=== PATIENT | male | born 1955 | race Caucasian/White ===

== ENCOUNTER 2021-08-26 22:35 | Observation (INO) | payer MEDICARE, OTHER, SELFPAY ==
[2021-08-26] MEDS ORDERED: Sodium Chloride 0.9% 1000 ML 1,000 ML IV SCH (22:45)
--- NOTE | 2021-08-26 22:46 | ERPHSYRPT ---
- History of Present Illness Time Seen by Provider: 08/26/21 22:38 Physician History: 66-year-old male with a history of stage IV lung cancer on chemotherapy, DVT presented in the ER with chief complaint of strokelike symptoms. Patient/ report patient got up and was having difficulty walking/off balance and numbness left face and right upper extremity which started almost half an hour prior to arrival. Patient does report difficulty swallowing. Denies any headache, visual disturbance, difficulty speech, facial droop, focal weakness etc. Denies any chest pain palpitations or shortness of breath but what he has at his baseline. Timing/Duration: hour(s) (0.5), constant, sudden Severity: moderate Character of Deficits: altered sensation, Left Facial, RUE Deficits: off balance Baseline/Normal Cognition: alert oriented x 3 Current Cognition: alert oriented x 3 Baseline Gait: walks w/o assistance Associated Symptoms: numbness/tingling in legs/feet, trouble walking, No confusion, No loss of consciousness, No seizures, No slurred speech, No vision changes, No chest pain, No headache Allergies/Adverse Reactions: No Known Drug Allergies Allergy (Verified 08/26/21 22:39) Home Medications: ALPRAZolam [Alprazolam] 1 tab PO BID PRN 08/26/21 [History] Apixaban [Eliquis 5 mg Tablet] 1 tab PO BID 08/26/21 [History] Omeprazole 1 cap PO DAILY 08/26/21 [History] Oxycodone HCl/Acetaminophen [Oxycodone-Acetaminophn 7.5-325] 1 tab PO QID 08/26/21 [History] Hx Tetanus, Diphtheria Vaccination/Date Given: Yes Hx Influenza Vaccination/Date Given: No Hx Pneumococcal Vaccination/Date Given: No - Review of Systems Constitutional: Fatigue Eyes: No Symptoms Ears, Nose, & Throat: No Symptoms Respiratory: Dyspnea Cardiac: No Symptoms Abdominal/Gastrointestinal: No Symptoms Genitourinary Symptoms: No Symptoms Musculoskeletal: No Symptoms Skin: No Symptoms Neurological: Gait Changes, Sensory Changes Psychological: No Symptoms Endocrine: No Symptoms Hematologic/Lymphatic: Blood Clots Immunological/Allergic: No Symptoms - Past Medical History Pertinent Past Medical History: Yes Neurological History: No Pertinent History ENT History: No Pertinent History Cardiac History: No Pertinent History Respiratory History: No Pertinent History Endocrine Medical History: No Pertinent History Musculoskeletal History: No Pertinent History GI Medical History: GERD Psycho-Social History: Anxiety, Depression Male Reproductive Disorders: No Pertinent History - Past Surgical History Past Surgical History: Yes Gastrointestinal: Hernia Repair Other Surgical History: tailbone cyst. fatty tissue removed from back - Social History Smoking Status: Current every day smoker How long have you smoked: 1 Exposure to second hand smoke: Yes Drug Use: none Patient Lives Alone: No - Nursing Vital Signs Nursing Vital Signs: Initial Vital Signs Temperature 98 F 08/26/21 22:35 Pulse Rate 97 H 08/26/21 22:35 Respiratory Rate 12 08/26/21 22:35 Blood Pressure 159/68 08/26/21 22:35 O2 Sat by Pulse Oximetry 97 08/26/21 22:35 Pain Scale Pain Intensity 0 - Anya Coma Scale Best Eye Response (Anya): (4) open spontaneously Best Verbal Response ([place]): (5) oriented Best Motor Response (Anya): (6) obeys commands Anya Total: 15 - Physical Exam General Appearance: no apparent distress, alert Eye Exam: bilateral eye: normal inspection, PERRL, EOMI Ears, Nose, Throat Exam: normal ENT inspection, TMs normal, pharynx normal, moist mucous membranes Neck Exam: normal inspection, non-tender, supple, full range of motion Respiratory: normal breath sounds, lungs clear Cardiovascular: regular rate/rhythm, normal heart sounds Gastrointestinal: soft, normal bowel sounds, No tenderness Back Exam: normal inspection, normal range of motion Extremity Exam: normal inspection, normal range of motion, pelvis stable Mental Status: alert, oriented x 3, cooperative chemical laboratory tester Exam: normal hearing, normal speech, PERRL, No facial asymmetry, No facial droop Coordination/Gait: normal finger to nose, normal cerebellar function, No normal gait Motor/Sensory: no motor deficit, no pronator drift, negative Babinski's sign, sensory deficit (3 sensations of touch fine touch left face/right forearm/hand.) DTR: bicep (R): 2+, bicep (L): 2+, knee (R): 2+, knee (L): 2+ Skin Exam: normal color SpO2 Interpretation: normal SpO2: 95 O2 Delivery: Room Air - Course EKG Interpreted by Me: RATE (79), Sinus Rhythm, NORMAL AXIS, NORMAL QRS Ordered Tests: Medication Summary Discontinued Medications Generic Name Dose Route Start Last Admin Trade Name Freq PRN Reason Stop Dose Admin Acetaminophen 650 mg 08/27/21 04:55 Acetaminophen 325 Mg Tablet PO 09/26/21 04:54 Q4H PRN PRN PAIN AND/OR FEVER Albuterol/Ipratropium 3 ml 08/27/21 07:00 Ipratropium/Albuterol Sulfate 3 Ml Ampul.Neb IH 09/26/21 06:59 QIDRT JANE Alprazolam 1 mg 08/27/21 13:45 08/27/21 21:43 Alprazolam 1 Mg Tablet PO 09/26/21 13:44 1 mg BID PRN PRN Administration ANXIETY Apixaban 5 mg 08/27/21 14:00 08/28/21 08:17 Apixaban 2.5 Mg Tablet PO 09/26/21 13:59 5 mg BID JANE Administration Calcium Carbonate/Glycine 750 mg 08/28/21 08:25 08/28/21 08:56 Calcium Carbonate 750 Mg 750 Mg Tab.Chew PO 09/27/21 08:24 750 mg Q4HPRN PRN Administration INDIGESTION Heparin Sodium (Beef Lung) 500 units 08/27/21 18:38 Heparin Lock Flush Pf 500 Units/5 Ml Syringe PORT FLUSH 09/26/21 18:37 PRN PRN IV PORT FLUSH Sodium Chloride 1,000 mls @ 100 mls/hr 08/26/21 22:45 08/27/21 00:22 Sodium Chloride 0.9% 1000 Ml IV 09/25/21 22:44 100 mls/hr .Q10H JANE Administration Sodium Chloride Confirm 08/27/21 00:22 Sodium Chloride 0.9% 1000 Ml Administered 08/27/21 00:23 Dose 1,000 mls @ ud .ROUTE .STK-MED ONE Sodium Chloride 1,000 mls @ 100 mls/hr 08/27/21 04:55 08/28/21 01:31 Sodium Chloride 0.9% 1000 Ml IV 09/26/21 04:54 100 mls/hr .Q10H JANE Administration Nicotine 21 mg 08/27/21 15:45 08/28/21 08:18 Nicotine 21 Mg/Patch Patch TOP 09/26/21 15:44 21 mg Q24H10 JANE Administration Ondansetron HCl Confirm 08/26/21 22:56 Ondansetron Hcl 4 Mg/2 Ml Vial Administered 08/26/21 22:57 Dose 4 mg .ROUTE .STK-MED ONE Ondansetron HCl 4 mg 08/26/21 22:58 08/26/21 22:58 Ondansetron Hcl 4 Mg/2 Ml Vial IV 08/26/21 22:59 4 mg STAT ONE Administration Ondansetron HCl 4 mg 08/27/21 05:43 08/27/21 10:07 Ondansetron Hcl 4 Mg/2 Ml Vial IV 09/26/21 05:42 4 mg Q4H PRN PRN Administration NAUSEA/VOMITING Oxycodone/Acetaminophen 1.5 tab 08/27/21 17:00 08/28/21 08:18 Oxycodone Hcl/Apap 5 Mg/325 Mg Tablet PO 09/01/21 16:59 1.5 tab QID JANE Administration Pantoprazole Sodium 40 mg 08/27/21 10:00 08/27/21 10:07 Pantoprazole 40 Mg Vial IV 09/26/21 09:59 40 mg Q24H10 JANE Administration Pantoprazole Sodium 40 mg 08/28/21 10:00 08/28/21 08:18 Protonix (Pantoprazole) 40 Mg Tablet PO 09/27/21 09:59 40 mg DAILY JANE Administration Senna/Docusate Sodium 1 udtab 08/27/21 22:00 08/28/21 08:17 Senna/Docusate Sodium 1 Udtab Tablet PO 09/26/21 21:59 1 udtab BID JANE Administration Lab/Rad Data: Laboratory Result Diagrams 08/26/21 23:05 08/26/21 23:05 Laboratory Results 08/27/21 08/27/21 08/26/21 Range/Units 01:21 01:07 23:05 WBC (4.0-10.5) K/mm3 RBC (4.1-5.6) M/mm3 Hgb (12.5-18.0) gm/dl Hct (42-50) % MCV (78-100) fl MCH (26-32) pg MCHC (32-36) g/dl RDW (11.5-14.0) % Plt Count (150-450) K/mm3 MPV (7.5-11.0) fl Gran % (36.0-66.0) % Eos # (Auto) (0-0.5) Absolute Lymphs (auto) (1.0-4.6) Absolute Monos (auto) (0.0-1.3) Lymphocytes % (24.0-44.0) % Monocytes % (0.0-12.0) % Eosinophils % (0.00-5.0) % Basophils % (0.0-0.4) % Absolute Granulocytes (1.4-6.9) Basophils # (0-0.4) PT (9.4-12.5) SECONDS INR (0.8-3.0) APTT (25.1-36.5) SECONDS Sodium (137-145) mmol/L Potassium (3.5-5.1) mmol/L Chloride (98-107) mmol/L Carbon Dioxide (22-30) mmol/L Anion Gap (5-15) MEQ/L BUN (9-20) mg/dL Creatinine (0.66-1.25) mg/dL Estimated GFR ML/MIN Glucose (74-106) mg/dL Calcium (8.4-10.2) mg/dL Total Bilirubin (0.2-1.3) mg/dL AST (17-59) U/L ALT (0-50) U/L Alkaline Phosphatase (38-126) U/L Troponin I < 0.012 < 0.012 (0.000-0.034) ng/mL NT-Pro-B Natriuret Pep (0-900) pg/mL Serum Total Protein (6.3-8.2) g/dL Albumin (3.5-5.0) g/dL Influenza Type A Ag NEGATIVE (NEGATIVE) Influenza Type B Ag NEGATIVE (NEGATIVE) RSV (PCR) NEGATIVE (Negative) SARS-CoV-2 (PCR) NEGATIVE (NEGATIVE) 08/26/21 08/26/21 08/26/21 Range/Units 23:05 23:05 23:05 WBC 7.4 (4.0-10.5) K/mm3 RBC 4.48 (4.1-5.6) M/mm3 Hgb 13.7 (12.5-18.0) gm/dl Hct 40.8 L (42-50) % MCV 91.1 (78-100) fl MCH 30.6 (26-32) pg MCHC 33.6 (32-36) g/dl RDW 17.2 H (11.5-14.0) % Plt Count 278 (150-450) K/mm3 MPV 9.1 (7.5-11.0) fl Gran % 84.4 H (36.0-66.0) % Eos # (Auto) 0.03 (0-0.5) Absolute Lymphs (auto) 0.93 L (1.0-4.6) Absolute Monos (auto) 0.19 (0.0-1.3) Lymphocytes % 12.5 L (24.0-44.0) % Monocytes % 2.6 (0.0-12.0) % Eosinophils % 0.4 (0.00-5.0) % Basophils % 0.1 (0.0-0.4) % Absolute Granulocytes 6.28 (1.4-6.9) Basophils # 0.01 (0-0.4) PT 12.2 (9.4-12.5) SECONDS INR 1.03 (0.8-3.0) APTT 31.1 (25.1-36.5) SECONDS Sodium 138 (137-145) mmol/L Potassium 3.7 (3.5-5.1) mmol/L Chloride 103 (98-107) mmol/L Carbon Dioxide 25 (22-30) mmol/L Anion Gap 14.1 (5-15) MEQ/L BUN 23 H (9-20) mg/dL Creatinine 0.85 (0.66-1.25) mg/dL Estimated GFR > 60.0 ML/MIN Glucose 134 H (74-106) mg/dL Calcium 8.2 L (8.4-10.2) mg/dL Total Bilirubin 0.70 (0.2-1.3) mg/dL AST 35 (17-59) U/L ALT 29 (0-50) U/L Alkaline Phosphatase 107 (38-126) U/L Troponin I (0.000-0.034) ng/mL NT-Pro-B Natriuret Pep 49.8 (0-900) pg/mL Serum Total Protein 8.2 (6.3-8.2) g/dL Albumin 4.1 (3.5-5.0) g/dL Influenza Type A Ag (NEGATIVE) Influenza Type B Ag (NEGATIVE) RSV (PCR) (Negative) SARS-CoV-2 (PCR) (NEGATIVE) - Progress Progress: unchanged Progress Note: 08/27/21 00:27 66-year-old is evaluated for sudden onset left facial and right upper extremity numbness with difficulty swallowing. Seems like brainstem stroke. CT head is negative for any acute findings. Grossly unremarkable lab work and neuro consult is obtained who recommended CTA to rule out posterior circulation stroke and obtaining MRI in the morning. Patient is on Eliquis and recommended holding off on aspirin for now and keep patient n.p.o. until speech and swallow evaluation is done. Plan discussed with patient and family understand and agree with it. CT is pending currently. Discussed with and patient is ex cepted for admission. Discussed with : Bryanna, Other Will see patient in: hospital (observation) Counseled pt/family regarding: lab results, diagnosis, rad results - Departure Departure Disposition: Observation Clinical Impression: Stroke Condition: Stable Critical Care Time: Yes Critical Care Time(excluding separately billable procedures): Critical 30-74 mins
[2021-08-26] MEDS ORDERED: Zofran 4 MG/2 ML VIAL ONE (22:56)
[2021-08-26] MEDS ORDERED: Zofran 4 MG/2 ML VIAL IV ONE (22:58)
[2021-08-26 23:15] LABS: Absolute Neutrophil Ct (ANC) 6.28 (1.4-6.9); Basophil (Absolute #) 0.01 (0-0.4); Eosinophil % 0.4 % (0.00-5.0); Eosinophil (Absolute #) 0.03 (0-0.5); Hematocrit 40.8 % (42-50); Hemoglobin 13.7 gm/dl (12.5-18.0); Lymphocyte (Absolute #) 0.93 (1.0-4.6); Lymphocytes % 12.5 % (24.0-44.0); Mean Cell Volume 91.1 fl (78-100); Mean Corpuscular Hemoglobin 30.6 pg (26-32); Mean Corpuscular Hgb Concent. 33.6 g/dl (32-36); Mean Platelet Volume 9.1 fl (7.5-11.0); Monocyte (Absolute #) 0.19 (0.0-1.3); Monocytes % 2.6 % (0.0-12.0); Neutrophil % 84.4 % (36.0-66.0); Platelet Count 278 K/mm3 (150-450); Red Blood Count 4.48 M/mm3 (4.1-5.6); Red Cell Distribution Width 17.2 % (11.5-14.0); White Blood Count 7.4 K/mm3 (4.0-10.5)
[2021-08-26 23:25] LABS: INR 1.03 (0.8-3.0); PROTIME 12.2 SECONDS (9.4-12.5)
[2021-08-26 23:28] LABS: PTT 31.1 SECONDS (25.1-36.5)
[2021-08-26 23:39] LABS: ALBUMIN 4.1 g/dL (3.5-5.0); ALKALINE PHOSPHATASE 107 U/L (38-126); ANION GAP 14.1 MEQ/L (5-15); BLOOD UREA NITROGEN 23 mg/dL (9-20); CHLORIDE 103 mmol/L (98-107); Calcium 8.2 mg/dL (8.4-10.2); Carbon Dioxide 25 mmol/L (22-30); Creatinine 1 0.85 mg/dL (0.66-1.25); EST GLOMERULAR FILTRATION RATE > 60.0 ML/MIN; Glucose 134 mg/dL (74-106); NT PRO BNP 49.8 pg/mL (0-900); Potassium 3.7 mmol/L (3.5-5.1); SGOT/AST 35 U/L (17-59); SGPT/ALT 29 U/L (0-50); SODIUM 138 mmol/L (137-145); Total Protein 8.2 g/dL (6.3-8.2)
[2021-08-27] MEDS ORDERED: Sodium Chloride 0.9% 1000 ML 1,000 ML ONE (00:22)
[2021-08-27 01:45] LABS: INFLUENZA A NEGATIVE (NEGATIVE); INFLUENZA B NEGATIVE (NEGATIVE); RESPIRATORY SYNCTIAL VIRUS NEGATIVE (Negative); SARS-CoV-2 Xpert Express NEGATIVE (NEGATIVE)
[2021-08-27] MEDS ORDERED: TYLENOL 325 MG PO PRN (04:55)
[2021-08-27] MEDS: Zofran 4 MG/2 ML VIAL IV PRN ×2 (05:45→10:07)
[2021-08-27] MEDS: Sodium Chloride 0.9% 1000 ML 1,000 ML IV SCH ×2 (06:03→15:58)
[2021-08-27] MEDS ORDERED: DUONEB 0.5-3 MG/3 ml Neb IH SCH (07:00)
--- NOTE | 2021-08-27 09:05 | XRAY ---
Indication: Left facial numbness and right arm tingling. Stroke. Multiple contiguous axial images obtained through the head without contrast. Comparison: December 15, 2014. Ventriculosulcal pattern appears symmetric. New finding for remote lacunar infarct left basal ganglia. No acute intracranial hemorrhage, abnormal extra-axial fluid collection, or mass effect. Fourth ventricle is midline without hydrocephalus. [place]-white matter differentiation preserved. Bony calvarium intact. Mild mucosal thickening right maxillary sinus. Remaining paranasal sinuses and mastoid air cells are clear. Impression: Remote lacunar infarct left basal ganglia. Right maxillary sinus disease. Remaining CT head without contrast exam is negative. Comment: Preliminary interpretation made by [facility]. No critical discrepancy.
--- NOTE | 2021-08-27 09:13 | XRAY ---
Indication: Left sided numbness. Right-sided tingling. Stroke. Conventional contrast enhanced CTA neck performed using 100 cc Isovue 370 contrast. Two-dimensional sagittal and coronal reformatted images obtained. Additional 3-dimensional reformatted images obtained using a separate workstation. Comparison: None Visualized aortic arch demonstrates minimal arteriosclerotic calcifications without aneurysm/dissection. Normal branching right brachiocephalic, left common carotid, and left subclavian arteries. Very minimal arteriosclerotic disease origin left subclavian artery. Incidental partially visualized right Port-A-Cath. Right carotid circulation demonstrates widely patent common carotid, bulb, and external carotid arteries. Minimal scattered arteriosclerotic calcifications origin/proximal internal carotid artery producing 20-30% stenosis. Left carotid circulation demonstrates widely patent common carotid, bulb, and external carotid arteries. Mild calcifications origin/proximal internal carotid artery producing 40-50% stenosis. Vertebral arteries demonstrates the right vertebral artery to be larger in caliber. Distal left vertebral artery occlusion with reconstitution just proximal to the basilar artery presumed from retrograde flow. Visualized noncontrasted soft tissues demonstrates scattered centimeter and subcentimeter cervical/submandibular lymph nodes. Supra-and infraglottic airway widely patent. Thyroid gland enhances homogeneously. Lung apices demonstrates moderate pulmonary emphysema. Osseous structures intact with minimal degenerative changes throughout the cervical thoracic spine. Patient is nearly edentulous. Impression: 1. 20-30% stenosis right internal carotid and 40-50% stenosis left internal carotid arteries as detailed. 2. Occlusion distal left vertebral artery. 3. Incidental pulmonary emphysema and chronic bony findings. Comment: Preliminary interpretation made by [facility]. No critical discrepancy.
--- NOTE | 2021-08-27 09:17 | XRAY ---
Indication: Left sided numbness. Right-sided tingling. Stroke. Conventional contrast enhanced CTA head performed using 100 cc Isovue 370 contrast. Two-dimensional sagittal and coronal reformatted images obtained. Additional 3-dimensional reformatted images obtained using a separate workstation. Comparison: None Distal internal carotid arteries are bilaterally symmetric with mild arteriosclerotic calcifications involving both parasellar segments. No critical stenosis/obstruction or AV malformation. Normal carotid terminus with normal branching A1 and M1 segments bilaterally. More distal anterior cerebral, middle cerebral, anterior communicating, and posterior communicating arteries are normal in CTA appearance. Posterior circulation demonstrates normal CTA appearance to the basilar, left/right posterior cerebral, and left/right superior cerebellar arteries. Venous drainage/sinuses are unremarkable. No abnormal enhancing intra-axial or extra-axial mass. Impression: Mild arteriosclerotic calcifications both parasellar segments internal carotid arteries. Remaining CTA brain with contrast exam is negative. Comment: Preliminary interpretation made by [facility]. No critical discrepancy.
[2021-08-27] MEDS ORDERED: PROTONIX 40 MG IV IV SCH (10:00)
--- NOTE | 2021-08-27 11:01 | XRAY ---
Indication: Cerebrovascular accident. Sagittal, coronal, and axial MRI brain performed without contrast using T1, T2, FLAIR, diffusion, and ADC sequences. Comparison: None Several images/sequences are slightly degraded by motion. Age-appropriate global atrophy. No acute intracranial hemorrhage, abnormal extra-axial fluid collection, or mass effect. Diffusion images demonstrates small multifocal bilateral cerebellar restricted signal favoring acute ischemia. Largest in the right cerebellum measuring 1.1 cm. Similar small multifocal micro-ischemia seen of the posterior right temporal and lesser degree right occipital lobes. Fourth ventricle is midline without hydrocephalus. 7/8 cranial nerve complex bilaterally symmetric. Normal flow void signal within the major intracerebral circulation. Normal appearing craniocervical junction and sella turcica. Mild mucosal thickening right maxillary sinus. Remaining paranasal sinuses are clear. Impression: 1. Mild motion artifact. 2. Multifocal small acute micro-ischemia in both cerebellum, posterior right temporal, and right occipital lobes. Given multiplicity and bilaterality, rule out embolic etiology. 3. No acute hemorrhage/mass effect. 4. Right maxillary sinus disease.
[2021-08-27] MEDS ORDERED: XANAX 1 MG PO PRN (13:45)
[2021-08-27] MEDS: PERCOCET TABLET 5/325MG PO SCH ×2 (14:02→21:34)
[2021-08-27] MEDS: ELIQUIS 2.5 MG TABLET PO SCH ×2 (14:03→21:36)
--- NOTE | 2021-08-27 14:26 | PCM.HP ---
History of Present Illness - Chief Complaint Chief Complaint: difficulty in walking for 1 day History of Present Illness: is a 66 year old male.with a history of stage IV lung cancer on chemotherapy, DVT presented in the ER with chief complaint of symptoms. Patient/ report patient got up and was having difficulty walking/off balance and numbness left face and right upper extremity which started almost half an hour prior to arrival. Patient does report difficulty swallowing. Denies any headache, visual disturbance, difficulty speech, facial droop, focal weakness etc. Denies any chest pain palpitations or shortness of breath but what he has at his baseline. Timing/Duration: hour(s) (0.5), constant, sudden Severity: moderate Character of Deficits: altered sensation, Left Facial, RUE Deficits: off balance Baseline/Normal Cognition: alert oriented x 3 Current Cognition: alert oriented x 3 Baseline Gait: walks w/o assistance Associated Symptoms: numbness/tingling in legs/feet, trouble walking, No confusion, No loss of consciousness, No seizures, No slurred speech, No vision changes, No chest pain, No headache - Review of Systems Constitutional: Lethargy, Weakness, No Fever, No Chills Eyes: No Symptoms Ears, Nose, & Throat: No Symptoms Respiratory: No Cough, No Short Of Breath Cardiac: No Chest Pain, No Edema, No Syncope Abdominal/Gastrointestinal: No Abdominal Pain, No Nausea, No Vomiting, No Diarrhea Genitourinary Symptoms: No Dysuria Musculoskeletal: No Back Pain, No Neck Pain Skin: No Rash Neurological: Focal Weakness, Gait Changes, Speech Changes, No Dizziness, No Sensory Changes Psychological: No Symptoms Endocrine: No Symptoms Hematologic/Lymphatic: No Symptoms Immunological/Allergic: No Symptoms Medications & Allergies Home Medications: Home Medication List ALPRAZolam [Alprazolam] 1 tab PO BID PRN 08/26/21 [History Confirmed 08/26/21] Apixaban [Eliquis 5 mg Tablet] 1 tab PO BID 08/26/21 [History Confirmed 08/26/21] Omeprazole 1 cap PO DAILY 08/26/21 [History Confirmed 08/26/21] Oxycodone HCl/Acetaminophen [Oxycodone-Acetaminophn 7.5-325] 1 tab PO QID 08/26/21 [History Confirmed 08/26/21] Allergies/Adverse Reactions: Allergies Allergy/AdvReac Type Severity Reaction Status Date / Time No Known Drug Allergies Allergy Verified 08/26/21 22:39 - Past Medical History Past Medical History: Yes Neurological History: No Pertinent History ENT History: No Pertinent History Cardiac History: No Pertinent History Respiratory History: No Pertinent History Endocrine Medical History: No Pertinent History Musculoskelatal History: No Pertinent History GI Medical History: GERD Pyscho-Social History: Anxiety, Depression Male Reproductive Disorders: No Pertinent History Comment: History of blood clot in right arm, Chemo for lung CA - Past Surgical History Past Surgical History: Yes GI Surgical History: Hernia Repair Other Surgical History: tailbone cyst. fatty tissue removed from back - Social History Smoking Status: Current every day smoker How long have you smoked: 1 Exposure to second hand smoke: Yes Alcohol: Occasionally Drug Use: none - Physical Exam Vital Signs: Vital Signs - 24 hr Temp Pulse Resp BP Pulse Ox 08/27/21 12:00 98.0 F 75 16 133/69 96 08/27/21 07:38 97.7 F 80 16 129/60 95 08/27/21 05:51 79 16 94 L 08/27/21 05:12 97.8 F 79 16 138/73 96 08/27/21 04:06 77 14 140/76 98 08/27/21 02:56 84 19 142/76 98 08/27/21 00:55 81 19 136/78 96 08/27/21 00:30 95 08/26/21 23:35 68 12 145/85 97 08/26/21 22:35 98 F 97 H 12 159/68 97 General Appearance: no apparent distress, alert Neurologic Exam: alert, oriented x 3, cooperative, normal mood/affect, nml cerebellar function, nml station & gait, sensation nml, No motor deficits Eye Exam: PERRL/EOMI, eyes nml inspection Ears, Nose, Throat Exam: normal ENT inspection, TMs normal, pharynx normal, moist mucous membranes Neck Exam: normal inspection, non-tender, supple, full range of motion Respiratory Exam: normal breath sounds, lungs clear, No respiratory distress Cardiovascular Exam: regular rate/rhythm, normal heart sounds, normal peripheral pulses Gastrointestinal/Abdomen Exam: soft, normal bowel sounds, No tenderness, No mass Back Exam: normal inspection, normal range of motion, No CVA tenderness, No vertebral tenderness Extremity Exam: normal inspection, normal range of motion, pelvis stable Skin Exam: normal color, warm, dry, No rash Lymphatic Exam: No adenopathy Results - Labs Lab/Micro Results: Lab Results-Last 24 Hours 08/26/21 08/26/21 08/26/21 Range/Units 23:05 23:05 23:05 WBC 7.4 (4.0-10.5) K/mm3 RBC 4.48 (4.1-5.6) M/mm3 Hgb 13.7 (12.5-18.0) gm/dl Hct 40.8 L (42-50) % MCV 91.1 (78-100) fl MCH 30.6 (26-32) pg MCHC 33.6 (32-36) g/dl RDW 17.2 H (11.5-14.0) % Plt Count 278 (150-450) K/mm3 MPV 9.1 (7.5-11.0) fl Gran % 84.4 H (36.0-66.0) % Eos # (Auto) 0.03 (0-0.5) Absolute Lymphs (auto) 0.93 L (1.0-4.6) Absolute Monos (auto) 0.19 (0.0-1.3) Lymphocytes % 12.5 L (24.0-44.0) % Monocytes % 2.6 (0.0-12.0) % Eosinophils % 0.4 (0.00-5.0) % Basophils % 0.1 (0.0-0.4) % Absolute Granulocytes 6.28 (1.4-6.9) Basophils # 0.01 (0-0.4) PT 12.2 (9.4-12.5) SECONDS INR 1.03 (0.8-3.0) APTT 31.1 (25.1-36.5) SECONDS Sodium 138 (137-145) mmol/L Potassium 3.7 (3.5-5.1) mmol/L Chloride 103 (98-107) mmol/L Carbon Dioxide 25 (22-30) mmol/L Anion Gap 14.1 (5-15) MEQ/L BUN 23 H (9-20) mg/dL Creatinine 0.85 (0.66-1.25) mg/dL Estimated GFR > 60.0 ML/MIN Glucose 134 H (74-106) mg/dL Calcium 8.2 L (8.4-10.2) mg/dL Total Bilirubin 0.70 (0.2-1.3) mg/dL AST 35 (17-59) U/L ALT 29 (0-50) U/L Alkaline Phosphatase 107 (38-126) U/L Troponin I (0.000-0.034) ng/mL NT-Pro-B Natriuret Pep 49.8 (0-900) pg/mL Serum Total Protein 8.2 (6.3-8.2) g/dL Albumin 4.1 (3.5-5.0) g/dL Influenza Type A Ag (NEGATIVE) Influenza Type B Ag (NEGATIVE) RSV (PCR) (Negative) SARS-CoV-2 (PCR) (NEGATIVE) 08/26/21 08/27/21 08/27/21 Range/Units 23:05 01:07 01:21 WBC (4.0-10.5) K/mm3 RBC (4.1-5.6) M/mm3 Hgb (12.5-18.0) gm/dl Hct (42-50) % MCV (78-100) fl MCH (26-32) pg MCHC (32-36) g/dl RDW (11.5-14.0) % Plt Count (150-450) K/mm3 MPV (7.5-11.0) fl Gran % (36.0-66.0) % Eos # (Auto) (0-0.5) Absolute Lymphs (auto) (1.0-4.6) Absolute Monos (auto) (0.0-1.3) Lymphocytes % (24.0-44.0) % Monocytes % (0.0-12.0) % Eosinophils % (0.00-5.0) % Basophils % (0.0-0.4) % Absolute Granulocytes (1.4-6.9) Basophils # (0-0.4) PT (9.4-12.5) SECONDS INR (0.8-3.0) APTT (25.1-36.5) SECONDS Sodium (137-145) mmol/L Potassium (3.5-5.1) mmol/L Chloride (98-107) mmol/L Carbon Dioxide (22-30) mmol/L Anion Gap (5-15) MEQ/L BUN (9-20) mg/dL Creatinine (0.66-1.25) mg/dL Estimated GFR ML/MIN Glucose (74-106) mg/dL Calcium (8.4-10.2) mg/dL Total Bilirubin (0.2-1.3) mg/dL AST (17-59) U/L ALT (0-50) U/L Alkaline Phosphatase (38-126) U/L Troponin I < 0.012 < 0.012 (0.000-0.034) ng/mL NT-Pro-B Natriuret Pep (0-900) pg/mL Serum Total Protein (6.3-8.2) g/dL Albumin (3.5-5.0) g/dL Influenza Type A Ag NEGATIVE (NEGATIVE) Influenza Type B Ag NEGATIVE (NEGATIVE) RSV (PCR) NEGATIVE (Negative) SARS-CoV-2 (PCR) NEGATIVE (NEGATIVE) 08/27/21 Range/Units 05:33 WBC (4.0-10.5) K/mm3 RBC (4.1-5.6) M/mm3 Hgb (12.5-18.0) gm/dl Hct (42-50) % MCV (78-100) fl MCH (26-32) pg MCHC (32-36) g/dl RDW (11.5-14.0) % Plt Count (150-450) K/mm3 MPV (7.5-11.0) fl Gran % (36.0-66.0) % Eos # (Auto) (0-0.5) Absolute Lymphs (auto) (1.0-4.6) Absolute Monos (auto) (0.0-1.3) Lymphocytes % (24.0-44.0) % Monocytes % (0.0-12.0) % Eosinophils % (0.00-5.0) % Basophils % (0.0-0.4) % Absolute Granulocytes (1.4-6.9) Basophils # (0-0.4) PT (9.4-12.5) SECONDS INR (0.8-3.0) APTT (25.1-36.5) SECONDS Sodium (137-145) mmol/L Potassium (3.5-5.1) mmol/L Chloride (98-107) mmol/L Carbon Dioxide (22-30) mmol/L Anion Gap (5-15) MEQ/L BUN (9-20) mg/dL Creatinine (0.66-1.25) mg/dL Estimated GFR ML/MIN Glucose (74-106) mg/dL Calcium (8.4-10.2) mg/dL Total Bilirubin (0.2-1.3) mg/dL AST (17-59) U/L ALT (0-50) U/L Alkaline Phosphatase (38-126) U/L Troponin I < 0.012 (0.000-0.034) ng/mL NT-Pro-B Natriuret Pep (0-900) pg/mL Serum Total Protein (6.3-8.2) g/dL Albumin (3.5-5.0) g/dL Influenza Type A Ag (NEGATIVE) Influenza Type B Ag (NEGATIVE) RSV (PCR) (Negative) SARS-CoV-2 (PCR) (NEGATIVE) - Radiology Impressions Radiology Exams & Impressions: Radiology Procedures Category Date Time Status CT ANGIOGRAPHY NECK [CT] Stat Exams 08/27/21 00:26 Completed CTA HEAD W AND/OR WO CONTRAST [CT] Stat Exams 08/27/21 00:25 Completed HEAD WITHOUT CONTRAST [CT] Stat Exams 08/26/21 22:36 Completed MRI BRAIN W/O CONTRAST [MRI] Routine Exams 08/27/21 06:12 Completed MRI/MRI BRAIN W/O CONTRAST Indication: Cerebrovascular accident. Sagittal, coronal, and axial MRI brain performed without contrast using T1, T2, FLAIR, diffusion, and ADC sequences. Comparison: None Several images/sequences are slightly degraded by motion. Age-appropriate global atrophy. No acute intracranial hemorrhage, abnormal extra-axial fluid collection, or mass effect. Diffusion images demonstrates small multifocal bilateral cerebellar restricted signal favoring acute ischemia. Largest in the right cerebellum measuring 1.1 cm. Similar small multifocal micro-ischemia seen of the posterior right temporal and lesser degree right occipital lobes. Fourth ventricle is midline without hydrocephalus. 7/8 cranial nerve complex bilaterally symmetric. Normal flow void signal within the major intracerebral circulation. Normal appearing craniocervical junction and sella turcica. Mild mucosal thickening right maxillary sinus. Remaining paranasal sinuses are clear. Impression: 1. Mild motion artifact. 2. Multifocal small acute micro-ischemia in both cerebellum, posterior right temporal, and right occipital lobes. Given multiplicity and bilaterality, rule out embolic etiology. 3. No acute hemorrhage/mass effect. CT/CT ANGIOGRAPHY NECK Indication: Left sided numbness. Right-sided tingling. Stroke. Conventional contrast enhanced CTA neck performed using 100 cc Isovue 370 contrast. Two-dimensional sagittal and coronal reformatted images obtained. Additional 3-dimensional reformatted images obtained using a separate workstation. Comparison: None Visualized aortic arch demonstrates minimal arteriosclerotic calcifications without aneurysm/dissection. Normal branching right brachiocephalic, left common carotid, and left subclavian arteries. Very minimal arteriosclerotic disease origin left subclavian artery. Incidental partially visualized right Port-A-Cath. Right carotid circulation demonstrates widely patent common carotid, bulb, and external carotid arteries. Minimal scattered arteriosclerotic calcifications origin/proximal internal carotid artery producing 20-30% stenosis. Left carotid circulation demonstrates widely patent common carotid, bulb, and external carotid arteries. Mild calcifications origin/proximal internal carotid artery producing 40-50% stenosis. Vertebral arteries demonstrates the right vertebral artery to be larger in caliber. Distal left vertebral artery occlusion with reconstitution just proximal to the basilar artery presumed from retrograde flow. Visualized noncontrasted soft tissues demonstrates scattered centimeter and subcentimeter cervical/submandibular lymph nodes. Supra-and infraglottic airway widely patent. Thyroid gland enhances homogeneously. Lung apices demonstrates moderate pulmonary emphysema. Osseous structures intact with minimal degenerative changes throughout the cervical thoracic spine. Patient is nearly edentulous. Impression: 1. 20-30% stenosis right internal carotid and 40-50% stenosis left internal carotid arteries as detailed. 2. Occlusion distal left vertebral artery. 3. Incidental pulmonary emphysema and chronic bony findings. Comment: Prelimin Assessment/Plan (1) Embolic cerebral infarction Current Visit: Yes Status: Acute Qualifiers: Precerebral and cerebral artery: vertebral artery Laterality of affected vessel: left Qualified Code(s): I63.112 - Cerebral infarction due to embolism of left vertebral artery Assessment & Plan: CT/CT ANGIOGRAPHY NECK Indication: Left sided numbness. Right-sided tingling. Stroke. Conventional contrast enhanced CTA neck performed using 100 cc Isovue 370 contrast. Two-dimensional sagittal and coronal reformatted images obtained. Additional 3-dimensional reformatted images obtained using a separate workstation. Comparison: None Visualized aortic arch demonstrates minimal arteriosclerotic calcifications without aneurysm/dissection. Normal branching right brachiocephalic, left common carotid, and left subclavian arteries. Very minimal arteriosclerotic disease origin left subclavian artery. Incidental partially visualized right Port-A-Cath. Right carotid circulation demonstrates widely patent common carotid, bulb, and external carotid arteries. Minimal scattered arteriosclerotic calcifications origin/proximal internal carotid artery producing 20-30% stenosis. Left carotid circulation demonstrates widely patent common carotid, bulb, and external carotid arteries. Mild calcifications origin/proximal internal carotid artery producing 40-50% stenosis. Vertebral arteries demonstrates the right vertebral artery to be larger in caliber. Distal left vertebral artery occlusion with reconstitution just proximal to the basilar artery presumed from retrograde flow. Visualized noncontrasted soft tissues demonstrates scattered centimeter and subcentimeter cervical/submandibular lymph nodes. Supra-and infraglottic airway widely patent. Thyroid gland enhances homogeneously. Lung apices demonstrates moderate pulmonary emphysema. Osseous structures intact with minimal degenerative changes throughout the cervical thoracic spine. Patient is nearly edentulous. Impression: 1. 20-30% stenosis right internal carotid and 40-50% stenosis left internal carotid arteries as detailed. 2. Occlusion distal left vertebral artery. 3. Incidental pulmonary emphysema and chronic bony findings. CT/CT ANGIOGRAPHY NECK Indication: Left sided numbness. Right-sided tingling. Stroke. Conventional contrast enhanced CTA neck performed using 100 cc Isovue 370 contrast. Two-dimensional sagittal and coronal reformatted images obtained. Additional 3-dimensional reformatted images obtained using a separate workstation. Comparison: None Visualized aortic arch demonstrates minimal arteriosclerotic calcifications without aneurysm/dissection. Normal branching right brachiocephalic, left common carotid, and left subclavian arteries. Very minimal arteriosclerotic disease origin left subclavian artery. Incidental partially visualized right Port-A-Cath. Right carotid circulation demonstrates widely patent common carotid, bulb, and external carotid arteries. Minimal scattered arteriosclerotic calcifications origin/proximal internal carotid artery producing 20-30% stenosis. Left carotid circulation demonstrates widely patent common carotid, bulb, and external carotid arteries. Mild calcifications origin/proximal internal carotid artery producing 40-50% stenosis. Vertebral arteries demonstrates the right vertebral artery to be larger in caliber. Distal left vertebral artery occlusion with reconstitution just proximal to the basilar artery presumed from retrograde flow. Visualized noncontrasted soft tissues demonstrates scattered centimeter and subcentimeter cervical/submandibular lymph nodes. Supra-and infraglottic airway widely patent. Thyroid gland enhances homogeneously. Lung apices demonstrates moderate pulmonary emphysema. Osseous structures intact with minimal degenerative changes throughout the cervical thoracic spine. Patient is nearly edentulous. Impression: 1. 20-30% stenosis right internal carotid and 40-50% stenosis left internal carotid arteries as detailed. 2. Occlusion distal left vertebral artery. 3. Incidental pulmonary emphysema and chronic bony findings. Chief Complaint Diagnosis STROKE Allergies Allergy/AdvReac Type Severity Reaction Status Date / Time No Known Drug Allergies Allergy Verified 08/26/21 22:39 Vital Signs (Last 24 hours) Temp Pulse Resp BP Pulse Ox 08/27/21 12:00 98.0 F 75 16 133/69 96 08/27/21 07:38 97.7 F 80 16 129/60 95 08/27/21 05:51 79 16 94 L 08/27/21 05:12 97.8 F 79 16 138/73 96 08/27/21 04:06 77 14 140/76 98 08/27/21 02:56 84 19 142/76 98 08/27/21 00:55 81 19 136/78 96 08/27/21 00:30 95 08/26/21 23:35 68 12 145/85 97 08/26/21 22:35 98 F 97 H 12 159/68 97 Home Medications Medication Instructions Recorded Confirmed Last Taken Type ALPRAZolam [Alprazolam] 1 tab PO BID PRN 08/26/21 08/26/21 Unknown History Apixaban [Eliquis 5 mg 1 tab PO BID 08/26/21 08/26/21 Unknown History Tablet] Omeprazole 1 cap PO DAILY 08/26/21 08/26/21 Unknown History Oxycodone HCl/Acetaminophen 1 tab PO QID 08/26/21 08/26/21 Unknown History [Oxycodone-Acetaminophn 7.5-325] Current Medications Generic Name Dose Route Start Last Admin Trade Name Freq PRN Reason Stop Dose Admin Acetaminophen 650 mg 08/27/21 04:55 Acetaminophen 325 Mg Tablet PO 09/26/21 04:54 Q4H PRN PRN PAIN AND/OR FEVER Alprazolam 1 mg 08/27/21 13:45 Alprazolam 1 Mg Tablet PO 09/26/21 13:44 BID PRN PRN ANXIETY Apixaban 5 mg 08/27/21 14:00 04/13/22 14:03 Apixaban 2.5 Mg Tablet PO 09/26/21 13:59 5 mg BID JANE Administration Sodium Chloride 1,000 mls @ 100 mls/hr 08/27/21 04:55 08/27/21 06:03 Sodium Chloride 0.9% 1000 Ml IV 09/26/21 04:54 100 mls/hr .Q10H JANE Administration Ondansetron HCl 4 mg 08/27/21 05:43 08/27/21 10:07 Ondansetron Hcl 4 Mg/2 Ml Vial IV 09/26/21 05:42 4 mg Q4H PRN PRN Administration NAUSEA/VOMITING Oxycodone/Acetaminophen 1.5 tab 08/27/21 17:00 08/27/21 14:02 Oxycodone Hcl/Apap 5 Mg/325 Mg Tablet PO 09/01/21 16:59 1.5 tab QID JANE Administration Pantoprazole Sodium 40 mg 08/28/21 10:00 Protonix (Pantoprazole) 40 Mg Tablet PO 09/27/21 09:59 DAILY JANE Discontinued Medications Generic Name Dose Route Start Last Admin Trade Name Freq PRN Reason Stop Dose Admin Albuterol/Ipratropium 3 ml 08/27/21 07:00 Ipratropium/Albuterol Sulfate 3 Ml Ampul.Neb IH 09/26/21 06:59 QIDRT JANE Sodium Chloride 1,000 mls @ 100 mls/hr 08/26/21 22:45 08/27/21 00:22 Sodium Chloride 0.9% 1000 Ml IV 09/25/21 22:44 100 mls/hr .Q10H JANE Administration Sodium Chloride Confirm 08/27/21 00:22 Sodium Chloride 0.9% 1000 Ml Administered 08/27/21 00:23 Dose 1,000 mls @ ud .ROUTE .STK-MED ONE Ondansetron HCl Confirm 08/26/21 22:56 Ondansetron Hcl 4 Mg/2 Ml Vial Administered 08/26/21 22:57 Dose 4 mg .ROUTE .STK-MED ONE Ondansetron HCl 4 mg 08/26/21 22:58 08/26/21 22:58 Ondansetron Hcl 4 Mg/2 Ml Vial IV 08/26/21 22:59 4 mg STAT ONE Administration Pantoprazole Sodium 40 mg 08/27/21 10:00 08/27/21 10:07 Pantoprazole 40 Mg Vial IV 09/26/21 09:59 40 mg Q24H10 JANE Administration Intake & Output (Last 24 hours) 08/25/21 08/26/21 08/27/21 08/28/21 11:59 11:59 11:59 11:59 Intake Total 480 Output Total 1064 Balance -1064 480 Weight 79.3 kg Laboratory Results (Last 24 hours) 08/27/21 08/27/21 08/27/21 05:33 01:21 01:07 WBC RBC Hgb Hct MCV MCH MCHC RDW Plt Count MPV Gran % Eos # (Auto) Absolute Lymphs (auto) Absolute Monos (auto) Lymphocytes % Monocytes % Eosinophils % Basophils % Absolute Granulocytes Basophils # PT INR APTT Sodium Potassium Chloride Carbon Dioxide Anion Gap BUN Creatinine Estimated GFR Glucose Calcium Total Bilirubin AST ALT Alkaline Phosphatase Troponin I < 0.012 < 0.012 NT-Pro-B Natriuret Pep Serum Total Protein Albumin Influenza Type A Ag NEGATIVE Influenza Type B Ag NEGATIVE RSV (PCR) NEGATIVE SARS-CoV-2 (PCR) NEGATIVE 08/26/21 08/26/21 08/26/21 23:05 23:05 23:05 WBC RBC Hgb Hct MCV MCH MCHC RDW Plt Count MPV Gran % Eos # (Auto) Absolute Lymphs (auto) Absolute Monos (auto) Lymphocytes % Monocytes % Eosinophils % Basophils % Absolute Granulocytes Basophils # PT 12.2 INR 1.03 APTT 31.1 Sodium 138 Potassium 3.7 Chloride 103 Carbon Dioxide 25 Anion Gap 14.1 BUN 23 H Creatinine 0.85 Estimated GFR > 60.0 Glucose 134 H Calcium 8.2 L Total Bilirubin 0.70 AST 35 ALT 29 Alkaline Phosphatase 107 Troponin I < 0.012 NT-Pro-B Natriuret Pep 49.8 Serum Total Protein 8.2 Albumin 4.1 Influenza Type A Ag Influenza Type B Ag RSV (PCR) SARS-CoV-2 (PCR) 08/26/21 23:05 WBC 7.4 RBC 4.48 Hgb 13.7 Hct 40.8 L MCV 91.1 MCH 30.6 MCHC 33.6 RDW 17.2 H Plt Count 278 MPV 9.1 Gran % 84.4 H Eos # (Auto) 0.03 Absolute Lymphs (auto) 0.93 L Absolute Monos (auto) 0.19 Lymphocytes % 12.5 L Monocytes % 2.6 Eosinophils % 0.4 Basophils % 0.1 Absolute Granulocytes 6.28 Basophils # 0.01 PT INR APTT Sodium Potassium Chloride Carbon Dioxide Anion Gap BUN Creatinine Estimated GFR Glucose Calcium Total Bilirubin AST ALT Alkaline Phosphatase Troponin I NT-Pro-B Natriuret Pep Serum Total Protein Albumin Influenza Type A Ag Influenza Type B Ag RSV (PCR) SARS-CoV-2 (PCR) Orders (Last 24 hours) Category Date Time Status Bedrest ROUTINE Activity 08/27/21 04:55 Active Up With Assistance ROUTINE Activity 08/27/21 04:55 Active Honey Blender STAT Care 08/26/21 22:39 Completed Code Status Order ROUTINE Care 08/27/21 04:55 Active Discontinue Telemetry ROUTINE Care 08/27/21 13:54 Active EKG-ER Only STAT Care 08/26/21 22:38 Completed Fall Protocol Q1H Care 08/27/21 04:55 Active IV Care Q6H Care 08/27/21 04:55 Active IV Insertion STAT Care 08/26/21 22:[address] in Observation ROUTINE Care 08/27/21 04:55 Active Zach Le, Apply ROUTINE Care 08/27/21 04:55 Active Weight,Daily 0600 Care 08/27/21 04:55 Active House Regular Diet Diet 08/27/[address] ANGIOGRAPHY NECK [CT] Stat Exams 08/27/21 00:26 Completed CTA HEAD W AND/OR WO CONTRAST [CT] Stat Exams 08/27/21 00:25 Completed HEAD WITHOUT CONTRAST [CT] Stat Exams 08/26/21 22:36 Completed MRI BRAIN W/O CONTRAST [MRI] Routine Exams 08/27/21 06:12 Completed BMP AM.LAB Lab 08/28/21 04:00 Ordered CBC W DIFF AM.LAB Lab 08/28/21 04:00 Ordered CBC W DIFF Stat Lab 08/26/21 23:05 Completed CMP Stat Lab 08/26/21 23:05 Completed COVID/FLU/RSV Panel Stat Lab 08/27/21 01:07 Completed NT PRO BNP Stat Lab 08/26/21 23:05 Completed PROTIME WITH INR Stat Lab 08/26/21 23:05 Completed PTT Stat Lab 08/26/21 23:05 Completed TROPONIN Q3H Lab 08/26/21 23:05 Completed TROPONIN Q3H Lab 08/27/21 01:21 Completed TROPONIN Q3H Lab 08/27/21 05:33 Completed ALPRAZolam 1 MG [Xanax 1 mg] Med 08/27/21 13:45 Active 1 mg PO BID PRN PRN Acetaminophen 325 mg [Tylenol 325 mg] Med 08/27/21 04:55 Active 650 mg PO Q4H PRN PRN Albuterol/Ipratropium 3ml Neb* [DUONEB 0.5-3 MG/3 ml Med 08/27/21 07:00 Discontinued Neb] 3 ml IH QIDRT Apixaban [Eliquis 2.5 mg Tablet] Med 08/27/21 14:00 Active 5 mg PO BID NaCl 0.9% 1000 ml [Sodium Chloride 0.9% 1000 ML] 1,000 Med 08/27/21 00:22 Discontinued ml .ROUTE UD NaCl 0.9% 1000 ml [Sodium Chloride 0.9% 1000 ML] 1,000 Med 08/26/21 22:45 Discontinued ml IV 100 mls/hr NaCl 0.9% 1000 ml [Sodium Chloride 0.9% 1000 ML] 1,000 Med 08/27/21 04:55 Active ml IV 100 mls/hr Ondansetron HCl 4 mg/2 ml [Zofran 4 MG/2 ML VIAL] Med 08/26/21 22:56 Discontinued 4 mg .ROUTE .STK-MED ONE Ondansetron HCl 4 mg/2 ml [Zofran 4 MG/2 ML VIAL] Med 08/27/21 05:43 Active 4 mg IV Q4H PRN PRN Ondansetron HCl 4 mg/2 ml [Zofran 4 MG/2 ML VIAL] Med 08/26/21 22:58 Discontinued 4 mg IV STAT ONE Oxycodone/APAP 5 mg/325 mg [Percocet Tablet 5/325Mg Med 08/27/21 17:00 Active *] 1.5 tab PO QID PANTOPRAZOLE 40 mg Tablet [Protonix 40MG Tablet] Med 08/28/21 10:00 Active 40 mg PO DAILY Pantoprazole 40 mg [Protonix 40 mg IV] Med 08/27/21 10:00 Discontinued 40 mg IV Q24H10 OT Screen per Nursing Assess ONCE OT 08/27/21 05:30 Active PT Screen per Nursing Assess ONCE PT 08/27/21 05:30 Active Oxygen Nasal Cannula 2 lpm RT 08/27/21 04:55 Completed Pulse Oximetry .spot check RT 08/27/21 05:49 Completed Respiratory Therapy Assessment DAILY RT 08/27/21 05:49 Completed Smoking Cessation Education ONCE RT 08/27/21 05:30 Completed Transfer Order Routine Transfer 08/27/21 Completed Patient Care Notes (Last 24 hours) 08/27/21 09:05 Nursing Note by Natalya Sebastian DR PH[employer]ED [employer]ER, QUESTIONED PATIENT STATUS. REQUESTED TO FIND OUT WHO PATIENT ONCOLOGIST IS AN NOTIFY PATIENT IS HERE. DR HUMPHREYS WILL BE HERE AT NOON TO SEE PATIENT. Initialized on 08/27/21 09:05 - END OF NOTE Code(s): I63.40 - CEREBRAL INFARCTION DUE TO EMBOLISM OF UNSP CEREBRAL ARTERY (2) Small cell lung cancer in adult Current Visit: Yes Status: Acute Code(s): C34.90 - MALIGNANT NEOPLASM OF UNSP PART OF UNSP BRONCHUS OR LUNG (3) Altered mental status Current Visit: No Status: Acute Code(s): R41.82 - ALTERED MENTAL STATUS, UNSPECIFIED
[2021-08-27] MEDS: Nicoderm CQ 21 MG TOP SCH (15:58)
[2021-08-27] MEDS ORDERED: NON-FORMULARY ITEM (Oxycodone Hcl/Acetaminophen [Oxycodone-Acetaminophn 7.5-325] 1 EACH Ta PO SCH (17:00)
[2021-08-27] MEDS: Senokot-S Tablet PO SCH (21:43)
[2021-08-27] MEDS ORDERED: NON-FORMULARY ITEM (Apixaban*** [Eliquis 5 Mg Tablet***] 5 MG Tablet) PO SCH (22:00)
[2021-08-28] MEDS: Sodium Chloride 0.9% 1000 ML 1,000 ML IV SCH (01:31)
[2021-08-28 05:34] LABS: ANION GAP 12.6 MEQ/L (5-15); Absolute Neutrophil Ct (ANC) 3.94 (1.4-6.9); BLOOD UREA NITROGEN 13 mg/dL (9-20); Basophil (Absolute #) 0.01 (0-0.4); CHLORIDE 105 mmol/L (98-107); Calcium 7.9 mg/dL (8.4-10.2); Carbon Dioxide 24 mmol/L (22-30); Creatinine 1 0.69 mg/dL (0.66-1.25); EST GLOMERULAR FILTRATION RATE > 60.0 ML/MIN; Eosinophil % 0.7 % (0.00-5.0); Eosinophil (Absolute #) 0.04 (0-0.5); Glucose 107 mg/dL (74-106); Hematocrit 34.6 % (42-50); Hemoglobin 11.4 gm/dl (12.5-18.0); Lymphocyte (Absolute #) 1.18 (1.0-4.6); Lymphocytes % 21.4 % (24.0-44.0); Mean Cell Volume 92.3 fl (78-100); Mean Corpuscular Hemoglobin 30.4 pg (26-32); Mean Corpuscular Hgb Concent. 32.9 g/dl (32-36); Mean Platelet Volume 9.5 fl (7.5-11.0); Monocyte (Absolute #) 0.34 (0.0-1.3); Monocytes % 6.2 % (0.0-12.0); Neutrophil % 71.5 % (36.0-66.0); Platelet Count 194 K/mm3 (150-450); Potassium 3.8 mmol/L (3.5-5.1); Red Blood Count 3.75 M/mm3 (4.1-5.6); Red Cell Distribution Width 16.9 % (11.5-14.0); SODIUM 138 mmol/L (137-145); White Blood Count 5.5 K/mm3 (4.0-10.5)
[2021-08-28] MEDS: ELIQUIS 2.5 MG TABLET PO SCH (08:17)
[2021-08-28] MEDS: Senokot-S Tablet PO SCH (08:17)
[2021-08-28] MEDS: PERCOCET TABLET 5/325MG PO SCH (08:18)
[2021-08-28] MEDS: Nicoderm CQ 21 MG TOP SCH (08:18)
[2021-08-28] MEDS ORDERED: Tums EX 750 MG PO PRN (08:25)
[2021-08-28] MEDS ORDERED: NON-FORMULARY ITEM (Omeprazole [Omeprazole] 20 MG Capsule.Dr) PO SCH (10:00)
[2021-08-28] MEDS ORDERED: Protonix 40MG Tablet PO SCH (10:00)
[2021-08-28 12:13] VITALS: BP 131/85; PULSE 90; O2SAT 95
--- NOTE | 2021-08-28 19:13 | PCM.DS ---
Discharge Summary Date of Admission: 08/27/21 04:52 Admitting Physician: GABRIELA HUMPHREYS Primary Care Provider: CARIE BARRIENTOS Allergies Allergies No Known Drug Allergies Allergy (Verified 08/26/21 22:39) Hospital Summary - Hospital Course Hospital Course: Chief Complaint Diagnosis difficulty in walking for 1 day Allergies Allergy/AdvReac Type Severity Reaction Status Date / Time No Known Drug Allergies Allergy Verified 08/26/21 22:39 Vital Signs (Last 24 hours) Temp Pulse Resp BP Pulse Ox 08/28/21 12:00 98.9 F 90 20 131/85 95 08/28/21 07:40 98.5 F 89 20 140/68 96 08/28/21 04:00 98.9 F 90 20 137/75 96 08/27/21 23:33 97.7 F 84 18 145/76 96 08/27/21 19:49 99.1 F 76 20 134/65 97 Home Medications Medication Instructions Recorded Confirmed Last Taken Type ALPRAZolam [Alprazolam] 1 tab PO BID PRN 08/26/21 08/26/21 Unknown History Apixaban [Eliquis 5 mg 1 tab PO BID 08/26/21 08/26/21 Unknown History Tablet] Omeprazole 1 cap PO DAILY 08/26/21 08/26/21 Unknown History Oxycodone HCl/Acetaminophen 1 tab PO QID 08/26/21 08/26/21 Unknown History [Oxycodone-Acetaminophn 7.5-325] Current Medications Discontinued Medications Generic Name Dose Route Start Last Admin Trade Name Freq PRN Reason Stop Dose Admin Acetaminophen 650 mg 08/27/21 04:55 Acetaminophen 325 Mg Tablet PO 09/26/21 04:54 Q4H PRN PRN PAIN AND/OR FEVER Albuterol/Ipratropium 3 ml 08/27/21 07:00 Ipratropium/Albuterol Sulfate 3 Ml Ampul.Neb 09/26/21 06:59 QIDRT JANE Alprazolam 1 mg 08/27/21 13:45 08/27/21 21:43 Alprazolam 1 Mg Tablet PO 09/26/21 13:44 1 mg BID PRN PRN Administration ANXIETY Apixaban 5 mg 08/27/21 14:00 08/28/21 08:17 Apixaban 2.5 Mg Tablet PO 09/26/21 13:59 5 mg BID JANE Administration Calcium Carbonate/Glycine 750 mg 08/28/21 08:25 08/28/21 08:56 Calcium Carbonate 750 Mg 750 Mg Tab.Chew PO 09/27/21 08:24 750 mg Q4HPRN PRN Administration INDIGESTION Heparin Sodium (Beef Lung) 500 units 08/27/21 18:38 Heparin Lock Flush Pf 500 Units/5 Ml Syringe PORT FLUSH 09/26/21 18:37 PRN PRN IV PORT FLUSH Sodium Chloride 1,000 mls @ 100 mls/hr 08/26/21 22:45 08/27/21 00:22 Sodium Chloride 0.9% 1000 Ml IV 09/25/21 22:44 100 mls/hr .Q10H JANE Administration Sodium Chloride Confirm 08/27/21 00:22 Sodium Chloride 0.9% 1000 Ml Administered 08/27/21 00:23 Dose 1,000 mls @ ud .ROUTE .STK-MED ONE Sodium Chloride 1,000 mls @ 100 mls/hr 08/27/21 04:55 08/28/21 01:31 Sodium Chloride 0.9% 1000 Ml IV 09/26/21 04:54 100 mls/hr .Q10H JANE Administration Nicotine 21 mg 08/27/21 15:45 08/28/21 08:18 Nicotine 21 Mg/Patch Patch TOP 09/26/21 15:44 21 mg Q24H10 JANE Administration Ondansetron HCl Confirm 08/26/21 22:56 Ondansetron Hcl 4 Mg/2 Ml Vial Administered 08/26/21 22:57 Dose 4 mg .ROUTE .STK-MED ONE Ondansetron HCl 4 mg 08/26/21 22:58 08/26/21 22:58 Ondansetron Hcl 4 Mg/2 Ml Vial IV 08/26/21 22:59 4 mg STAT ONE Administration Ondansetron HCl 4 mg 08/27/21 05:43 08/27/21 10:07 Ondansetron Hcl 4 Mg/2 Ml Vial IV 09/26/21 05:42 4 mg Q4H PRN PRN Administration NAUSEA/VOMITING Oxycodone/Acetaminophen 1.5 tab 08/27/21 17:00 08/28/21 08:18 Oxycodone Hcl/Apap 5 Mg/325 Mg Tablet PO 09/01/21 16:59 1.5 tab QID JANE Administration Pantoprazole Sodium 40 mg 08/27/21 10:00 08/27/21 10:07 Pantoprazole 40 Mg Vial IV 09/26/21 09:59 40 mg Q24H10 JANE Administration Pantoprazole Sodium 40 mg 08/28/21 10:00 08/28/21 08:18 Protonix (Pantoprazole) 40 Mg Tablet PO 09/27/21 09:59 40 mg DAILY JANE Administration Senna/Docusate Sodium 1 udtab 08/27/21 22:00 08/28/21 08:17 Senna/Docusate Sodium 1 Udtab Tablet PO 09/26/21 21:59 1 udtab BID JANE Administration Intake & Output (Last 24 hours) 08/26/21 08/27/21 08/28/21 08/29/21 11:59 11:59 11:59 11:59 Intake Total 4320 Output Total 1064 Balance -1064 4320 Weight 79.3 kg 81.9 kg Laboratory Results (Last 24 hours) 08/28/21 08/28/21 04:40 04:40 WBC 5.5 RBC 3.75 L Hgb 11.4 L Hct 34.6 L MCV 92.3 MCH 30.4 MCHC 32.9 RDW 16.9 H Plt Count 194 MPV 9.5 Gran % 71.5 H Eos # (Auto) 0.04 Absolute Lymphs (auto) 1.18 Absolute Monos (auto) 0.34 Lymphocytes % 21.4 L Monocytes % 6.2 Eosinophils % 0.7 Basophils % 0.2 Absolute Granulocytes 3.94 Basophils # 0.01 Sodium 138 Potassium 3.8 Chloride 105 Carbon Dioxide 24 Anion Gap 12.6 BUN 13 Creatinine 0.69 Estimated GFR > 60.0 Glucose 107 H Calcium 7.9 L Orders (Last 24 hours) Category Date Time Status Discharge Routine Discharge 08/28/21 09:16 Ordered BMP AM.LAB Lab 08/28/21 04:40 Completed CBC W DIFF AM.LAB Lab 08/28/21 04:40 Completed Calcium Carbonate 750 mg [Tums EX 750 MG] Med 08/28/21 08:25 Discontinued 750 mg PO Q4HPRN PRN Heparin Flush 500 units/5 ml [Heparin Lock Flush 100 Med 08/27/21 18:38 Discontinued Units/ml 5ml Syringe] 500 units PORT FLUSH PRN PRN PANTOPRAZOLE 40 mg Tablet [Protonix 40MG Tablet] Med 08/28/21 10:00 Disc ontinued 40 mg PO DAILY Senna/Docusate Sodium Tab [Senokot-S Tablet] Med 08/27/21 22:00 Discontinued 1 udtab PO BID Patient Care Notes (Last 24 hours) 08/28/21 10:04 Case Management Note by Addie Turner S/W PATIENT- HE CONTINUES TO DENY ANY NEW NEEDS AT TIME OF DC. HE PLANS TO RETURN HOME TO HIS PRIOR LEVEL OF FUNCTIONING. HE DENIES THE NEED FOR ANY HHC OR OTPT THERAPY. Initialized on 08/28/21 10:04 - END OF NOTE - Vitals & Intake/Output Vital Signs: Vital Signs Temperature 98.9 F 08/28/21 12:00 Pulse Rate 90 08/28/21 12:00 Respiratory Rate 20 08/28/21 12:00 Blood Pressure 131/85 08/28/21 12:00 O2 Sat by Pulse Oximetry 95 08/28/21 12:00 Intake & Output: Intake & Output 08/26/21 08/27/21 08/28/21 08/29/21 11:59 11:59 11:59 11:59 Intake Total 4320 Output Total 1064 Balance -1064 4320 Weight 79.3 kg 81.9 kg - Lab Result Diagrams: 08/28/21 04:40 08/28/21 04:40 Lab Results-Last 24 Hrs: Lab Results-Last 24 Hours 08/28/21 08/28/21 Range/Units 04:40 04:40 WBC 5.5 (4.0-10.5) K/mm3 RBC 3.75 L (4.1-5.6) M/mm3 Hgb 11.4 L (12.5-18.0) gm/dl Hct 34.6 L (42-50) % MCV 92.3 (78-100) fl MCH 30.4 (26-32) pg MCHC 32.9 (32-36) g/dl RDW 16.9 H (11.5-14.0) % Plt Count 194 (150-450) K/mm3 MPV 9.5 (7.5-11.0) fl Gran % 71.5 H (36.0-66.0) % Eos # (Auto) 0.04 (0-0.5) Absolute Lymphs (auto) 1.18 (1.0-4.6) Absolute Monos (auto) 0.34 (0.0-1.3) Lymphocytes % 21.4 L (24.0-44.0) % Monocytes % 6.2 (0.0-12.0) % Eosinophils % 0.7 (0.00-5.0) % Basophils % 0.2 (0.0-0.4) % Absolute Granulocytes 3.94 (1.4-6.9) Basophils # 0.01 (0-0.4) Sodium 138 (137-145) mmol/L Potassium 3.8 (3.5-5.1) mmol/L Chloride 105 (98-107) mmol/L Carbon Dioxide 24 (22-30) mmol/L Anion Gap 12.6 (5-15) MEQ/L BUN 13 (9-20) mg/dL Creatinine 0.69 (0.66-1.25) mg/dL Estimated GFR > 60.0 ML/MIN Glucose 107 H (74-106) mg/dL Calcium 7.9 L (8.4-10.2) mg/dL - Radiology Exams Ordered Rad Exams-Entire Visit: Radiology Procedures Category Date Time Status CT ANGIOGRAPHY NECK [CT] Stat Exams 08/27/21 00:26 Completed CTA HEAD W AND/OR WO CONTRAST [CT] Stat Exams 08/27/21 00:25 Completed HEAD WITHOUT CONTRAST [CT] Stat Exams 08/26/21 22:36 Completed MRI BRAIN W/O CONTRAST [MRI] Routine Exams 08/27/21 06:12 Completed - Procedures and Test Procedures and Tests throughout Hospitalization: Therapy Orders & Screens 08/27/21 04:55 Oxygen Nasal Cannula 2 lpm Comment: 08/27/21 05:30 OT Screen per Nursing Assess ONCE Comment: Protocol Order Physician Instructions: Greater than 3 points order OT Admission Screening Reason For Exam: Triggered on Admission Diagnosis: STROKE Open Wound/Cellutlitis/Pressure Ulcers: No Acute Fx/ORIF/Change in wt bearing status: No Severe MUSCULOSKELETAL pain: No ADL Dysfunction: Yes Acute CVA w/Hemiparesis/Hemiplegia: Yes Decreased Functional Mobility/Strength: No Sprain/Strain: No Acute Post-op Mobility Dysfunction: No Total Points: 8 PT Screen per Nursing Assess ONCE Comment: Protocol Order Physician Instructions: Greater than 3 points order PT Admission Screenin Reason For Exam: Triggered on Admission Diagnosis: STROKE Open Wound/Cellutlitis/Pressure Ulcers: No Acute Fx/ORIF/Change in wt bearing status: No Severe MUSCULOSKELETAL pain: No ADL Dysfunction: Yes Acute CVA w/Hemiparesis/Hemiplegia: Yes Decreased Functional Mobility/Strength: No Sprain/Strain: No Acute Post-op Mobility Dysfunction: No Total Points: 8 Smoking Cessation Education ONCE Comment: Diagnosis: STROKE Smoking Status: Current every day smoker How long have you smoked: 1 Have you smoked in the past 12 months: Yes Approximately how many cigarettes per day: 1ppd Do you dip or chew tobacco: No 08/27/21 05:49 Respiratory Therapy Assessment DAILY Comment: Diagnosis: STROKE Discharge Exam General Appearance: no apparent distress, alert Neurologic Exam: alert, oriented x 3, cooperative, normal mood/affect, nml cerebellar function, sensation nml, No motor deficits Eye Exam: PERRL, EOMI, eyes nml inspection Ears, Nose, Throat Exam: normal ENT inspection, pharynx normal, moist mucous membranes Neck Exam: normal inspection, non-tender, supple, full range of motion Respiratory Exam: normal breath sounds, lungs clear, No respiratory distress Cardiovascular Exam: regular rate/rhythm, normal heart sounds Gastrointestinal/Abdomen Exam: soft, No tenderness, No mass Male Genitalia Exam: deferred Rectal Exam: deferred Back Exam: normal inspection, normal range of motion, No CVA tenderness, No vertebral tenderness Extremity Exam: normal inspection, normal range of motion Skin Exam: normal color, warm, dry Final Diagnosis/Problem List - Final Discharge Diagnosis/Problem (1) Embolic cerebral infarction Status: Acute Assessment & Plan: Chief Complaint Diagnosis difficulty in walking for 1 day Allergies Allergy/AdvReac Type Severity Reaction Status Date / Time No Known Drug Allergies Allergy Verified 08/26/21 22:39 Vital Signs (Last 24 hours) Temp Pulse Resp BP Pulse Ox 08/28/21 12:00 98.9 F 90 20 131/85 95 08/28/21 07:40 98.5 F 89 20 140/68 96 08/28/21 04:00 98.9 F 90 20 137/75 96 08/27/21 23:33 97.7 F 84 18 145/76 96 08/27/21 19:49 99.1 F 76 20 134/65 97 Home Medications Medication Instructions Recorded Confirmed Last Taken Type ALPRAZolam [Alprazolam] 1 tab PO BID PRN 08/26/21 08/26/21 Unknown History Apixaban [Eliquis 5 mg 1 tab PO BID 08/26/21 08/26/21 Unknown History Tablet] Omeprazole 1 cap PO DAILY 08/26/21 08/26/21 Unknown History Oxycodone HCl/Acetaminophen 1 tab PO QID 08/26/21 08/26/21 Unknown History [Oxycodone-Acetaminophn 7.5-325] Current Medications Discontinued Medications Generic Name Dose Route Start Last Admin Trade Name Freq PRN Reason Stop Dose Admin Acetaminophen 650 mg 08/27/21 04:55 Acetaminophen 325 Mg Tablet PO 09/26/21 04:54 Q4H PRN PRN PAIN AND/OR FEVER Albuterol/Ipratropium 3 ml 08/27/21 07:00 Ipratropium/Albuterol Sulfate 3 Ml Ampul.Neb IH 09/26/21 06:59 QIDRT JANE Alprazolam 1 mg 08/27/21 13:45 08/27/21 21:43 Alprazolam 1 Mg Tablet PO 09/26/21 13:44 1 mg BID PRN PRN Administration ANXIETY Apixaban 5 mg 08/27/21 14:00 08/28/21 08:17 Apixaban 2.5 Mg Tablet PO 09/26/21 13:59 5 mg BID JANE Administration Calcium Carbonate/Glycine 750 mg 08/28/21 08:25 08/28/21 08:56 Calcium Carbonate 750 Mg 750 Mg Tab.Chew PO 09/27/21 08:24 750 mg Q4HPRN PRN Administration INDIGESTION Heparin Sodium (Beef Lung) 500 units 08/27/21 18:38 Heparin Lock Flush Pf 500 Units/5 Ml Syringe PORT FLUSH 09/26/21 18:37 PRN PRN IV PORT FLUSH Sodium Chloride 1,000 mls @ 100 mls/hr 08/26/21 22:45 08/27/21 00:22 Sodium Chloride 0.9% 1000 Ml IV 09/25/21 22:44 100 mls/hr .Q10H JANE Administration Sodium Chloride Confirm 08/27/21 00:22 Sodium Chloride 0.9% 1000 Ml Administered 08/27/21 00:23 Dose 1,000 mls @ ud .ROUTE .STK-MED ONE Sodium Chloride 1,000 mls @ 100 mls/hr 08/27/21 04:55 08/28/21 01:31 Sodium Chloride 0.9% 1000 Ml IV 09/26/21 04:54 100 mls/hr .Q10H JANE Administration Nicotine 21 mg 08/27/21 15:45 08/28/21 08:18 Nicotine 21 Mg/Patch Patch TOP 09/26/21 15:44 21 mg Q24H10 JANE Administration Ondansetron HCl Confirm 08/26/21 22:56 Ondansetron Hcl 4 Mg/2 Ml Vial Administered 08/26/21 22:57 Dose 4 mg .ROUTE .STK-MED ONE Ondansetron HCl 4 mg 08/26/21 22:58 08/26/21 22:58 Ondansetron Hcl 4 Mg/2 Ml Vial IV 08/26/21 22:59 4 mg STAT ONE Administration Ondansetron HCl 4 mg 08/27/21 05:43 08/27/21 10:07 Ondansetron Hcl 4 Mg/2 Ml Vial IV 09/26/21 05:42 4 mg Q4H PRN PRN Administration NAUSEA/VOMITING Oxycodone/Acetaminophen 1.5 tab 08/27/21 17:00 08/28/21 08:18 Oxycodone Hcl/Apap 5 Mg/325 Mg Tablet PO 09/01/21 16:59 1.5 tab QID JANE Administration Pantoprazole Sodium 40 mg 08/27/21 10:00 08/27/21 10:07 Pantoprazole 40 Mg Vial IV 09/26/21 09:59 40 mg Q24H10 JANE Administration Pantoprazole Sodium 40 mg 08/28/21 10:00 08/28/21 08:18 Protonix (Pantoprazole) 40 Mg Tablet PO 09/27/21 09:59 40 mg DAILY JANE Administration Senna/Docusate Sodium 1 udtab 08/27/21 22:00 08/28/21 08:17 Senna/Docusate Sodium 1 Udtab Tablet PO 09/26/21 21:59 1 udtab BID JANE Administration Intake & Output (Last 24 hours) 08/26/21 08/27/21 08/28/21 08/29/21 11:59 11:59 11:59 11:59 Intake Total 4320 Output Total 1064 Balance -1064 4320 Weight 79.3 kg 81.9 kg Laboratory Results (Last 24 hours) 08/28/21 08/28/21 04:40 04:40 WBC 5.5 RBC 3.75 L Hgb 11.4 L Hct 34.6 L MCV 92.3 MCH 30.4 MCHC 32.9 RDW 16.9 H Plt Count 194 MPV 9.5 Gran % 71.5 H Eos # (Auto) 0.04 Absolute Lymphs (auto) 1.18 Absolute Monos (auto) 0.34 Lymphocytes % 21.4 L Monocytes % 6.2 Eosinophils % 0.7 Basophils % 0.2 Absolute Granulocytes 3.94 Basophils # 0.01 Sodium 138 Potassium 3.8 Chloride 105 Carbon Dioxide 24 Anion Gap 12.6 BUN 13 Creatinine 0.69 Estimated GFR > 60.0 Glucose 107 H Calcium 7.9 L Orders (Last 24 hours) Category Date Time Status Discharge Routine Discharge 08/28/21 09:16 Ordered BMP AM.LAB Lab 08/28/21 04:40 Completed CBC W DIFF AM.LAB Lab 08/28/21 04:40 Completed Calcium Carbonate 750 mg [Tums EX 750 MG] Med 08/28/21 08:25 Discontinued 750 mg PO Q4HPRN PRN Heparin Flush 500 units/5 ml [Heparin Lock Flush 100 Med 08/27/21 18:38 Discontinued Units/ml 5ml Syringe] 500 units PORT FLUSH PRN PRN PANTOPRAZOLE 40 mg Tablet [Protonix 40MG Tablet] Med 08/28/21 10:00 Discontinued 40 mg PO DAILY Senna/Docusate Sodium Tab [Senokot-S Tablet] Med 08/27/21 22:00 Discontinued 1 udtab PO BID Patient Care Notes (Last 24 hours) 08/28/21 10:04 Case Management Note by Addie Turner S/W PATIENT- HE CONTINUES TO DENY ANY NEW NEEDS AT TIME OF DC. HE PLANS TO RETURN HOME TO HIS PRIOR LEVEL OF FUNCTIONING. HE DENIES THE NEED FOR ANY HHC OR OTPT THERAPY. Initialized on 08/28/21 10:04 - END OF NOTE Code(s): I63.40 - CEREBRAL INFARCTION DUE TO EMBOLISM OF UNSP CEREBRAL ARTERY (2) Small cell lung cancer in adult Status: Acute Code(s): C34.90 - MALIGNANT NEOPLASM OF UNSP PART OF UNSP BRONCHUS OR LUNG (3) Altered mental status Status: Acute Code(s): R41.82 - ALTERED MENTAL STATUS, UNSPECIFIED - Discharge Discharge Date: 08/28/21 Disposition: Home, Self-Care Condition: Stable Prescriptions: Continue Omeprazole 1 cap PO DAILY ALPRAZolam [Alprazolam] 1 tab PO BID PRN PRN Reason: Anxiety Oxycodone HCl/Acetaminophen [Oxycodone-Acetaminophn 7.5-325] 1 tab PO QID Apixaban [Eliquis 5 mg Tablet] 1 tab PO BID Instructions: Stroke (DC) Additional Instructions: PLEASE TAKE YOUR DISCHARGE INFORMATION WITH YOU TO YOUR NEXT APPOINTMENT WITH DR. BOLAND. Follow up with: GABRIELA HUMPHREYS MD [ACTIVE STAFF] - 09/05/21 11:00 am ([facility]) Forms: Discharge Instructions
== END 2021-08-28 11:49 | disposition home or self-care (01) ==
LOC: ED 22:35 → MED SURG 08-27 04:52
PROVIDERS: ADMIT General Practice; ATTEND General Practice
DX: I63.40 Cerebral infarction due to embolism of unspecified cerebral artery (principal); C34.90 Malignant neoplasm of unspecified part of unspecified bronchus or lung; R41.82 Altered mental status, unspecified; I82.409 Acute embolism and thrombosis of unspecified deep veins of unspecified lower extremity; Z79.01 Long term (current) use of anticoagulants; Z79.899 Other long term (current) drug therapy; Z72.0 Tobacco use
CPT/HCPCS: 0241U; 36000; 36415; 70450; 70496; 70498; 70551; 80048; 80053; 83880; 84484; 85025; 85610; 85730; 93005; 93041; 93268; 94760; 96374; 99285; 99291; G0378; J2405; Q3014; A9270-GY

== ENCOUNTER 2021-09-16 15:06 | Emergency (ER) | payer MEDICARE ==
--- NOTE | 2021-09-16 15:47 | XRAY ---
Indication: TIA. Right-sided weakness. Multifocal micro-ischemia seen on recent MRI brain. Multiple contiguous axial images obtained through the head without contrast. Comparison: August 26, 2021 and MRI brain August 27, 2021. MRI proven bilateral cerebellar infarcts have matured with now demonstrating multifocal areas of encephalomalacia, largest right paramedian measuring at least 2.8 x 2.3 cm. Remaining brain demonstrates stable remote lacunar infarct left basal ganglia. No acute intracranial hemorrhage, hydrocephalus, or mass effect. Fourth ventricle is midline. Bony calvarium intact. Again mild mucosal thickening of visualized right maxillary sinus with new fluid leveling. Remaining paranasal sinuses and mastoid air cells are clear. Impression: 1. MRI proven bilateral cerebellar infarcts have matured as detailed. 2. Stable remote lacunar infarct left basal ganglia. 3. No new acute intracranial abnormalities. 4. Again incidental right maxillary sinus disease.
[2021-09-16 16:03] LABS: Absolute Neutrophil Ct (ANC) 2.01 (1.4-6.9); Basophil (Absolute #) 0.03 (0-0.4); Eosinophil % 1.8 % (0.00-5.0); Eosinophil (Absolute #) 0.07 (0-0.5); Hemoglobin 11.8 gm/dl (12.5-18.0); Lymphocyte (Absolute #) 1.32 (1.0-4.6); Lymphocytes % 34.3 % (24.0-44.0); Mean Corpuscular Hemoglobin 31.1 pg (26-32); Mean Corpuscular Hgb Concent. 32.8 g/dl (32-36); Mean Platelet Volume 9.2 fl (7.5-11.0); Monocyte (Absolute #) 0.42 (0.0-1.3); Monocytes % 10.9 % (0.0-12.0); Neutrophil % 52.2 % (36.0-66.0); Platelet Count 225 K/mm3 (150-450); Red Blood Count 3.79 M/mm3 (4.1-5.6); Red Cell Distribution Width 18.4 % (11.5-14.0); White Blood Count 3.9 K/mm3 (4.0-10.5)
[2021-09-16 16:11] LABS: ALBUMIN 3.6 g/dL (3.5-5.0); ALKALINE PHOSPHATASE 91 U/L (38-126); ANION GAP 13.1 MEQ/L (5-15); BLOOD UREA NITROGEN 18 mg/dL (9-20); CHLORIDE 103 mmol/L (98-107); Calcium 8.7 mg/dL (8.4-10.2); Carbon Dioxide 24 mmol/L (22-30); Creatinine 1 0.84 mg/dL (0.66-1.25); EST GLOMERULAR FILTRATION RATE > 60.0 ML/MIN; Glucose 133 mg/dL (74-106); Potassium 4.4 mmol/L (3.5-5.1); SGOT/AST 23 U/L (17-59); SGPT/ALT 14 U/L (0-50); SODIUM 135 mmol/L (137-145); Total Protein 7.2 g/dL (6.3-8.2)
[2021-09-16 16:54] LABS: INFLUENZA A NEGATIVE (NEGATIVE); INFLUENZA B NEGATIVE (NEGATIVE); RESPIRATORY SYNCTIAL VIRUS NEGATIVE (Negative); SARS-CoV-2 Xpert Express NEGATIVE (NEGATIVE)
--- NOTE | 2021-09-16 17:17 | ERPHSYRPT ---
- History of Present Illness Time Seen by Provider: 09/16/21 15:30 Source: patient Exam Limitations: no limitations Patient Subjective Stated Complaint: Pt states "All of a sudden my right face went numb and flaccid, my right hand went numb and my right leg was numb. I royal ve a blockage in my right neck all the way to my wrist that they put me on eliquis for." Triage Nursing Assessment: PT presetned alert and oriented X 3, skin pwd Pt ambulates with an upright steady gait, able to speak in clear full sentences pt in no aparent respiratory distress. pt has clear speach, equal coat fitter and no facaial droop at this time. Physician History: Patient is a 66-year-old male presents to our ED for evaluation of strokelike symptoms. Patient states that he was at home when his right face went numb and flaccid. Patient states his right hand and leg also felt numb and weak. However symptoms recovered prior to arrival. 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 Patient currently on E liquis.Patient symptoms now resolved. Patient denies residual weakness or numbness.No headache. No trauma. No fever. Timing/Duration: today Severity: moderate Modifying Factors: Improves With: nothing Allergies/Adverse Reactions: No Known Drug Allergies Allergy (Verified 08/26/21 22:39) Home Medications: ALPRAZolam [Alprazolam] 1 tab PO BID PRN 08/26/21 [History] Apixaban [Eliquis 5 mg Tablet] 1 tab PO BID 08/26/21 [History] Omeprazole 1 cap PO DAILY 08/26/21 [History] Oxycodone HCl/Acetaminophen [Oxycodone-Acetaminophn 7.5-325] 1 tab PO QID 08/26/21 [History] Hx Tetanus, Diphtheria Vaccination/Date Given: Yes Hx Influenza Vaccination/Date Given: No Hx Pneumococcal Vaccination/Date Given: No Immunizations Up to Date: Yes Travel Risk - International Travel Have you traveled outside of the country in past 3 weeks: No - Coronavirus Screening Are you exhibiting any of the following symptoms?: No - Vaccine Status Have you recieved a Covid-19 vaccination: No - Review of Systems Constitutional: No Symptoms, No Fever, No Chills Eyes: No Symptoms Ears, Nose, & Throat: No Symptoms Respiratory: No Symptoms, No Cough, No Dyspnea Cardiac: No Symptoms, No Chest Pain, No Edema, No Syncope Abdominal/Gastrointestinal: No Symptoms, No Abdominal Pain, No Nausea, No Vomiting, No Diarrhea Genitourinary Symptoms: No Symptoms, No Dysuria Musculoskeletal: No Symptoms, No Back Pain, No Neck Pain Skin: No Symptoms, No Rash Neurological: No Symptoms, No Dizziness, No Focal Weakness, No Sensory Changes Psychological: No Symptoms Endocrine: No Symptoms Hematologic/Lymphatic: No Symptoms Immunological/Allergic: No Symptoms All Other Systems: Reviewed and Negative - Past Medical History Pertinent Past Medical History: Yes Neurological History: No Pertinent History ENT History: No Pertinent History Cardiac History: No Pertinent History Respiratory History: No Pertinent History Endocrine Medical History: No Pertinent History Musculoskeletal History: No Pertinent History GI Medical History: GERD Psycho-Social History: Anxiety, Depression Male Reproductive Disorders: No Pertinent History Other Medical History: History of blood clot in right arm, Chemo for lung CA - Past Surgical History Past Surgical History: Yes Gastrointestinal: Hernia Repair Other Surgical History: tailbone cyst. fatty tissue removed from back - Social History Smoking Status: Current every day smoker How long have you smoked: 1 Exposure to second hand smoke: Yes Drug Use: none Patient Lives Alone: No - Nursing Vital Signs Nursing Vital Signs: Initial Vital Signs Temperature 97 F 09/16/21 15:18 Pulse Rate 93 H 09/16/21 15:18 Respiratory Rate 20 09/16/21 15:18 Blood Pressure 142/89 09/16/21 15:18 O2 Sat by Pulse Oximetry 98 09/16/21 15:18 Pain Scale Pain Intensity 0 - Physical Exam General Appearance: no apparent distress, alert Eye Exam: PERRL/EOMI, eyes nml inspection Ears, Nose, Throat Exam: normal ENT inspection, TMs normal, pharynx normal, moist mucous membranes Neck Exam: normal inspection, non-tender, supple, full range of motion Respiratory Exam: normal breath sounds, lungs clear, airway intact, No respiratory distress Cardiovascular Exam: regular rate/rhythm, normal heart sounds, normal peripheral pulses Gastrointestinal/Abdomen Exam: soft, normal bowel sounds, No tenderness, No mass Back Exam: normal inspection, normal range of motion, No CVA tenderness, No vertebral tenderness Extremity Exam: normal inspection, normal range of motion, pelvis stable Neurologic Exam: alert, oriented x 3, cooperative, normal mood/affect, nml cerebellar function, nml station & gait, sensation nml, No motor deficits Skin Exam: normal color, warm, dry, No rash Lymphatic Exam: No adenopathy SpO2 Interpretation: normal SpO2: 97 O2 Delivery: Room Air - Course Nursing assessment & vital signs reviewed: Yes EKG Interpreted by Me: RATE (90), Sinus Rhythm, NORMAL AXIS, NORMAL INTERVALS Ordered Tests: Active Orders 24 hr Category Date Time Status AGAINST MEDICAL ADVISE [Release AMA] OM.NOW Care 09/16/21 21:04 Active Electronic Science Teacher STAT Care 09/16/21 15:28 Active EKG-ER Only STAT Care 09/16/21 15:27 Active IV Insertion STAT Care 09/16/21 15:27 Active Pulse Oximetry (ED) STAT Care 09/16/21 15:27 Active HEAD WITHOUT CONTRAST [CT] Stat Exams 09/16/21 15:27 Completed CBC W DIFF Stat Lab 09/16/21 15:33 Completed CMP Stat Lab 09/16/21 15:33 Completed TROPONIN Q3H Lab 09/16/21 15:33 Completed TROPONIN Q3H Lab 09/16/21 18:20 Completed TROPONIN Q3H Lab 09/16/21 21:30 Ordered TROPONIN Q3H Lab 09/17/21 00:30 Ordered TROPONIN Q3H Lab 09/17/21 03:30 Ordered Medication Summary Discontinued Medications Generic Name Dose Route Start Last Admin Trade Name Freq PRN Reason Stop Dose Admin Albuterol Sulfate 2.5 mg 09/16/21 19:45 Albuterol Sulfate 2.5 Mg/3 Ml Neb IH 09/16/21 19:46 STAT ONE Lab/Rad Data: Laboratory Result Diagrams 09/16/21 15:33 09/16/21 15:33 Laboratory Results 09/16/21 09/16/21 09/16/21 Range/Units 18:20 16:10 15:33 WBC (4.0-10.5) K/mm3 RBC (4.1-5.6) M/mm3 Hgb (12.5-18.0) gm/dl Hct (42-50) % MCV (78-100) fl MCH (26-32) pg MCHC (32-36) g/dl RDW (11.5-14.0) % Plt Count (150-450) K/mm3 MPV (7.5-11.0) fl Gran % (36.0-66.0) % Eos # (Auto) (0-0.5) Absolute Lymphs (auto) (1.0-4.6) Absolute Monos (auto) (0.0-1.3) Lymphocytes % (24.0-44.0) % Monocytes % (0.0-12.0) % Eosinophils % (0.00-5.0) % Basophils % (0.0-0.4) % Absolute Granulocytes (1.4-6.9) Basophils # (0-0.4) Sodium (137-145) mmol/L Potassium (3.5-5.1) mmol/L Chloride (98-107) mmol/L Carbon Dioxide (22-30) mmol/L Anion Gap (5-15) MEQ/L BUN (9-20) mg/dL Creatinine (0.66-1.25) mg/dL Estimated GFR ML/MIN Glucose (74-106) mg/dL Calcium (8.4-10.2) mg/dL Total Bilirubin (0.2-1.3) mg/dL AST (17-59) U/L ALT (0-50) U/L Alkaline Phosphatase (38-126) U/L Troponin I < 0.012 < 0.012 (0.000-0.034) ng/mL Serum Total Protein (6.3-8.2) g/dL Albumin (3.5-5.0) g/dL Influenza Type A Ag NEGATIVE (NEGATIVE) Influenza Type B Ag NEGATIVE (NEGATIVE) RSV (PCR) NEGATIVE (Negative) SARS-CoV-2 (PCR) NEGATIVE (NEGATIVE) 09/16/21 09/16/21 Range/Units 15:33 15:33 WBC 3.9 L (4.0-10.5) K/mm3 RBC 3.79 L (4.1-5.6) M/mm3 Hgb 11.8 L (12.5-18.0) gm/dl Hct 36.0 L (42-50) % MCV 95.0 (78-100) fl MCH 31.1 (26-32) pg MCHC 32.8 (32-36) g/dl RDW 18.4 H (11.5-14.0) % Plt Count 225 (150-450) K/mm3 MPV 9.2 (7.5-11.0) fl Gran % 52.2 (36.0-66.0) % Eos # (Auto) 0.07 (0-0.5) Absolute Lymphs (auto) 1.32 (1.0-4.6) Absolute Monos (auto) 0.42 (0.0-1.3) Lymphocytes % 34.3 (24.0-44.0) % Monocytes % 10.9 (0.0-12.0) % Eosinophils % 1.8 (0.00-5.0) % Basophils % 0.8 (0.0-0.4) % Absolute Granulocytes 2.01 (1.4-6.9) Basophils # 0.03 (0-0.4) Sodium 135 L (137-145) mmol/L Potassium 4.4 (3.5-5.1) mmol/L Chloride 103 (98-107) mmol/L Carbon Dioxide 24 (22-30) mmol/L Anion Gap 13.1 (5-15) MEQ/L BUN 18 (9-20) mg/dL Creatinine 0.84 (0.66-1.25) mg/dL Estimated GFR > 60.0 ML/MIN Glucose 133 H (74-106) mg/dL Calcium 8.7 (8.4-10.2) mg/dL Total Bilirubin 0.30 (0.2-1.3) mg/dL AST 23 (17-59) U/L ALT 14 (0-50) U/L Alkaline Phosphatase 91 (38-126) U/L Troponin I (0.000-0.034) ng/mL Serum Total Protein 7.2 (6.3-8.2) g/dL Albumin 3.6 (3.5-5.0) g/dL Influenza Type A Ag (NEGATIVE) Influenza Type B Ag (NEGATIVE) RSV (PCR) (Negative) SARS-CoV-2 (PCR) (NEGATIVE) - Progress Progress: improved Progress Note: EKG had borderline ST elevation inferiorly. The EKG was forwarded to [facility] where Dr. Jenifer ayala and a park maintainer reviewed it. They felt it was not ST segment elevation. Patient has had strokes in the past. Patient is high risk for strokes. Patient's presentation consistent with TIA. Patient not a candidate for acute tPA. We consulted telemetry neuro. Patient did not want to wait for telemetry neuro to be completed. Patient decided he did not want to be admitted. Patient left AGAINST MEDICAL ADVICE. Patient is of sound mind. Patient is appropriate to make informed and independent medical decisions. Patient understands that leaving AGAINST MEDICAL ADVICE can result in delayed diagnosis, increased risk of morbidity, mortality, short and long-term disability including . In spite of these risks, wagner mclaughlin has decided to leave AGAINST MEDICAL ADVICE. Patient understands that he may return to our ED at any point if he reconsiders. Patient agrees to follow-up with his primary care doctor within 48 hours for reevaluation. Patient voices no other complaints or concerns at this time. We will release patient AGAINST MEDICAL ADVICE per their request. Portions of this note were created with voice recognition technology. There may be grammatical, spelling, punctuation or sound alike errors 09/16/21 21:[address] Kelly Will see patient in: office (Case discussed with Dr. Echevarria who accepted admission however at that point telemetry neuro was not completed. Patient decided to leave AGAINST MEDICAL ADVICE while waiting for telemetry neuro consultation.) - Departure Departure Disposition: AMA Clinical Impression: TIA (transient ischemic attack), Remote lacunar infarcts, Remote bilateral cerebellar infarcts, Sinus disease Condition: Stable Critical Care Time: No Referrals: CARIE BARRIENTOS [Primary Care Provider] - Follow up/PCP as directed
[2021-09-16 19:11] VITALS: BP 125/76; PULSE 86; O2SAT 97
[2021-09-16] MEDS ORDERED: PROVENTIL 2.5 MG/3 ML NEB IH ONE (19:45)
== END 2021-09-16 21:27 | disposition left against medical advice (07) ==
LOC: ED 15:06
DX: G45.9 Transient cerebral ischemic attack, unspecified (principal); Z86.73 Personal history of transient ischemic attack (TIA), and cerebral infarction without residual deficits; J32.0 Chronic maxillary sinusitis; R29.810 Facial weakness; R53.1 Weakness; R20.0 Anesthesia of skin; Z72.0 Tobacco use; Z79.01 Long term (current) use of anticoagulants; Z79.891 Long term (current) use of opiate analgesic; Z79.899 Other long term (current) drug therapy
CPT/HCPCS: 0241U; 36000; 36415; 70450; 80053; 84484; 85025; 93005; 93041; 94760; 99284